=== PATIENT | female | born 1985 | race Caucasian/White ===

== ENCOUNTER 2019-01-17 19:27 | Emergency (ER) | payer BC, MEDICAID ==
[~2019-01-17] VITALS: Ht 154.9 cm; Wt 77.7 kg
[~2019-01-17 19:27] MED LIST: CEFD300C37 PO; CLIN300C8 PO; IBUP-1222 PO; OXYC-302 PO; OXYC-307 PO; PHEN-418 PO; PNV1TAB.5 PO; PNV1TABL11 PO; PREN1TAB14 PO; PROG100C16 PO; keflex
[2019-01-17 19:52] LABS: BASOPHILS # (AUTO) 0.02 x10^3/uL (0-0.1); BASOPHILS % (AUTO) 0 % (0-1); EOSINOPHILS # (AUTO) 0.04 x10^3/uL (0-0.4); EOSINOPHILS % (AUTO) 1 % (1-7); LYMPHOCYTES # (AUTO) 0.66 x10^3/uL (1-3.4); LYMPHOCYTES % (AUTO) 13 % (22-44); MD NO; MEAN CORPUSCULAR HGB CONC 34.4 g/dL (32.4-35.8); MEAN CORPUSCULAR VOLUME 84.4 fL (80-100); MEAN PLATELET VOLUME 8.5 fL (7.4-10.4); MONOCYTES # (AUTO) 0.33 x10^3/uL (0.2-0.8); MONOCYTES % (AUTO) 7 % (2-9); NEUTROPHILS % (AUTO) 79 % (42-75); PLATELET COUNT 285 x10^3/uL (130-400); RED BLOOD COUNT 4.82 x10^6/uL (3.82-5.3); RED CELL DISTRIBUTION WIDTH 13.2 % (9.6-15.2)
[2019-01-17 20:02] LABS: ANION GAP 4 mmol/L (5-15); CALCIUM 8.4 mg/dL (8.5-10.1); CHLORIDE 108 mmol/L (98-107); CREATININE 0.68 mg/dL (0.55-1.02)
--- NOTE | 2019-01-17 20:36 | NUR ---
FIRST CONTACT WITH PT. PT C/O CHEST DISCOMFORT WITH NAUSEA/SOB X 3 DAYS. PT DENIES ANY CARDIAC HISTORY. PT'S AOX4. RESPS EVEN AND UNLABORED. SINUS TACHY ON SEMI DRIVER RATE 100'S AT THIS TIME. ALL MONITORS IN PLACE. CALL LIGHT WITHIN REACH. AWAITING EDMD ASSESSMENT AT THIS TIME.
--- NOTE | 2019-01-17 21:05 | NUR ---
PT AMB TO BR AND BACK TO ROOM WITH STEADY GAIT.
[2019-01-17 21:14] LABS: TROPONIN I < 0.015 ng/mL (0.000-0.045)
--- NOTE | 2019-01-17 21:37 | NUR ---
PT RESTING IN [facility]. ALL MONITORS IN PLACE. CALL LIGHT WITHIN REACH. AWAITING DC AT THIS TIME.
--- NOTE | 2019-01-17 22:30 | NUR ---
PT TO CT NOW.
[2019-01-17] MEDS ORDERED: OMNIPAQUE 350 MG/ML, 100ML BOTTLE ONE (22:39)
--- NOTE | 2019-01-17 22:41 | NUR ---
PT BACK TO ROOM FROM CT AT THIS TIME.
[2019-01-17 23:18] VITALS: BP 113/86
--- NOTE | 2019-01-17 23:19 | NUR ---
PT GIVEN DC INSTRUCTIONS. PT AMB TO DC WITH STEADY GAIT. PT'S AOX4. RESPS EVEN AND UNLABORED. NO ACUTE DISTRESS AT DC.
== END 2019-01-17 23:20 | disposition home or self-care (01) ==
LOC: ED 21:06
DX: R07.2 Precordial pain (principal); R00.2 Palpitations; E66.9 Obesity, unspecified
CPT/HCPCS: 36415; 71046; 71275; 80048; 84439; 84443; 84484; 84703; 85025; 85379; 93005; 99284; Q9967

== ENCOUNTER → 2020-08-13 | Outpatient (CLI) | payer BC | END | disposition home or self-care (01) | LOC: STAR 15:01 | PROVIDERS: ATTEND Obstetrics & Gynecology | DX: Z20.828 Contact with and (suspected) exposure to other viral communicable diseases (principal) | CPT/HCPCS: 36415; 87635 ==

== ENCOUNTER 2020-08-14 15:44 | Inpatient (IN) | payer BC ==
[~2020-08-14] VITALS: Ht 154.9 cm; Wt 68.2 kg
[2020-08-14] MEDS ORDERED: FENTANYL PF 100 MCG/2ML ONE (16:26)
[2020-08-14] MEDS ORDERED: OXYTOCIN 30U/ 0.9% NaCL 500ML 500 ML IV ONE (16:30)
[2020-08-14] MEDS ORDERED: CALCIUM CARBONATE 500 MG TAB.CHEW PO PRN (16:30)
[2020-08-14] MEDS ORDERED: FENTANYL PF 100 MCG/2ML IVPush PRN (16:30)
[2020-08-14] MEDS ORDERED: TERBUTALINE 1 MG/ML, 1ML SQ PRN (16:30)
[2020-08-14] MEDS ORDERED: TERBUTALINE 1 MG/ML, 1ML IVPush PRN (16:30)
[2020-08-14] MEDS ORDERED: FENTANYL PF 100 MCG/2ML IV PRN (16:30)
[2020-08-14] MEDS ORDERED: ONDANSETRON 2MG/ML, 2ML IVPush PRN (16:30)
[2020-08-14] MEDS ORDERED: D5%-LACTATED RINGERS 1,000 ML IV SCH (16:30)
[2020-08-14] MEDS: LACTATED RINGERS 1,000 ML IV SCH ×2 (16:32→17:30)
[2020-08-14 16:35] LABS: BASOPHILS % (AUTO) 0 % (0-1); EOSINOPHILS % (AUTO) 0 % (1-7); LYMPHOCYTES % (AUTO) 9 % (22-44); MEAN CORPUSCULAR HEMOGLOBIN 27.8 pg (27.0-34.8); MEAN CORPUSCULAR HGB CONC 32.9 g/dL (32.4-35.8); MEAN PLATELET VOLUME 8.5 fL (7.4-10.4); MONOCYTES % (AUTO) 5 % (2-9); NEUTROPHILS % (AUTO) 85 % (42-75); PLATELET COUNT 261 x10^3/uL (130-400); RED BLOOD COUNT 4.12 x10^6/uL (3.82-5.3); RED CELL DISTRIBUTION WIDTH 14.3 % (9.6-15.2)
[2020-08-14 16:37] VITALS: BP 112/61
[2020-08-14 17:12] LABS: MD SCAN
[2020-08-14] MEDS ORDERED: BUPIVACAINE 0.25% ONE (17:29)
[2020-08-14] MEDS ORDERED: FENTANYL/BUPIV./NS/PF 250 ML EPIDCONT ONE (17:29)
[2020-08-14] MEDS ORDERED: NEWBORN KIT ONE (17:35)
[2020-08-14] MEDS: OXYTOCIN 30U/ 0.9% NaCL 500ML 500 ML IV SCH (17:37)
[2020-08-14] MEDS ORDERED: FLU VACC QS2020-21(6MOS UP)/PF 60MCG/0.5 ML SYR IM ONE (18:00)
[2020-08-14] MEDS ORDERED: OXYTOCIN 30U/ 0.9% NaCL 500ML 500 ML ONE ×2 (18:32→19:32)
[2020-08-14] MEDS ORDERED: ONDANSETRON 2MG/ML, 2ML IV PRN (19:00)
[2020-08-14] MEDS ORDERED: ACETAMINOPHEN 325 MG TABLET PO PRN (19:00)
[2020-08-14] MEDS ORDERED: OXYcodone/APAP 5/325MG TABLET PO PRN (19:00)
[2020-08-14] MEDS ORDERED: MISOPROSTOL 200 MCG TABLET PR PRN (19:00)
[2020-08-14] MEDS ORDERED: SIMETHICONE 80 MG CHEW TAB PO PRN (19:00)
[2020-08-14 21:00] VITALS: BP 121/72
[2020-08-14] MEDS: IBUPROFEN 600 MG TABLET PO PRN (22:10)
[2020-08-14] MEDS: DOCUSATE 100 MG CAPSULE PO PRN (22:10)
[2020-08-14] MEDS: OXYcodone IR 5MG TABLET PO PRN (22:11)
[2020-08-15] VITALS: BP 127/83
[2020-08-15] MEDS: OXYcodone IR 5MG TABLET PO PRN ×4 (02:16→15:21)
[2020-08-15 03:04] LABS: BASOPHILS % (AUTO) 0 % (0-1); EOSINOPHILS % (AUTO) 1 % (1-7); LYMPHOCYTES % (AUTO) 11 % (22-44); MEAN CORPUSCULAR HGB CONC 33.6 g/dL (32.4-35.8); MEAN PLATELET VOLUME 9.1 fL (7.4-10.4); MONOCYTES % (AUTO) 7 % (2-9); NEUTROPHILS % (AUTO) 82 % (42-75); PLATELET COUNT 231 x10^3/uL (130-400); RED CELL DISTRIBUTION WIDTH 14.2 % (9.6-15.2)
[2020-08-15 03:53] LABS: MD SCAN
[2020-08-15 04:00] VITALS: BP 120/71
[2020-08-15] MEDS: OXYTOCIN 30U/ 0.9% NaCL 500ML 500 ML IV SCH ×2 (05:00→15:00)
[2020-08-15] MEDS: IBUPROFEN 600 MG TABLET PO PRN ×2 (06:25→12:35)
[2020-08-15] MEDS ORDERED: IBUP-1222 PO (07:19)
[2020-08-15 08:27] VITALS: BP 122/83
[2020-08-15] MEDS ORDERED: FLU VACC QS2020-21(6MOS UP)/PF 60MCG/0.5 ML SYR IM-VACC ONE (09:00)
[2020-08-15] MEDS ORDERED: PRENATAL VIT/IRON/FA 1 EACH TABLET PO SCH (09:00)
[2020-08-15] MEDS: DOCUSATE 100 MG CAPSULE PO PRN (10:59)
[2020-08-15 12:00] VITALS: BP 121/86
[2020-08-15 16:15] VITALS: BP 128/85
== END 2020-08-15 18:32 | disposition home or self-care (01) | DRG 807 ==
LOC: LDOP 15:44 → LDIP 16:01 → 2NW 20:45
PROVIDERS: ADMIT Obstetrics & Gynecology; ATTEND Obstetrics & Gynecology
PROC: 10E0XZZ Delivery of Products of Conception, External Approach (ICD-10-PCS; principal; 2020-08-14)
DX: O69.1XX0 Labor and delivery complicated by cord around neck, with compression, not applicable or unspecified (principal); Z37.0 Single live birth; Z3A.00 Weeks of gestation of pregnancy not specified
CPT/HCPCS: 36415; 85025; 86592; 86850; 86900; 87635; 90686; G0378; J3010; J2590; J7120

== ENCOUNTER 2020-09-20 12:17 | Emergency (ER) | payer BC ==
[~2020-09-20] VITALS: Ht 154.9 cm; Wt 62.5 kg
--- NOTE | 2020-09-20 12:51 | NUR ---
pt. came in c/o painful urination, right flank pain x2 days. Pt. states hx of UTI, kidney stones. States feels similar. Denies fever, black tarry stool. Pt. connected to monitoring equipt. Call light within reach. Blankets provided. at bedside.
[2020-09-20] MEDS ORDERED: SODIUM CHLORIDE FLUSH 10ML SYR IVF ONE (13:00)
[2020-09-20] MEDS ORDERED: KETOROLAC 30 MG/1 ML IVPush ONE (13:00)
[2020-09-20] MEDS ORDERED: KETOROLAC 30 MG/1 ML ONE (13:03)
[2020-09-20 13:14] LABS: MICROSCOPIC INDICATED
[2020-09-20 13:26] LABS: BASOPHILS % (AUTO) 0 % (0-1); EOSINOPHILS % (AUTO) 1 % (1-7); LYMPHOCYTES % (AUTO) 13 % (22-44); MEAN CORPUSCULAR HEMOGLOBIN 27.8 pg (27.0-34.8); MEAN CORPUSCULAR HGB CONC 33.1 g/dL (32.4-35.8); MEAN PLATELET VOLUME 8.3 fL (7.4-10.4); MONOCYTES % (AUTO) 6 % (2-9); NEUTROPHILS % (AUTO) 80 % (42-75); PLATELET COUNT 265 x10^3/uL (130-400); RED BLOOD COUNT 4.71 x10^6/uL (3.82-5.3)
[2020-09-20 13:37] LABS: ALANINE AMINOTRANSFERASE 14 U/L (12-78); ALBUMIN 3.3 g/dL (3.4-5.0); ANION GAP 3 mmol/L (5-15); CALCIUM 8.5 mg/dL (8.5-10.1); CHLORIDE 109 mmol/L (98-107); CREATININE 0.78 mg/dL (0.55-1.02)
[2020-09-20 13:41] LABS: ALKALINE PHOSPHATASE 99 U/L (45-117); BILIRUBIN,TOTAL 0.4 mg/dL (0.2-1.0); TOTAL PROTEIN 6.8 g/dL (6.4-8.2)
[2020-09-20 13:44] LABS: MD SCAN
[2020-09-20] MEDS ORDERED: CEFTRIAXONE PMX 1GM/50ML 50 ML IV ONE (14:00)
[2020-09-20 15:06] VITALS: BP 118/74
== END 2020-09-20 15:09 | disposition home or self-care (01) ==
LOC: ED 14:16
DX: N10 Acute pyelonephritis (principal)
CPT/HCPCS: 36415; 80053; 81001; 83690; 84703; 85025; 87077; 87086; 87147; 96365; 96366; 96375; 99284; J0696; J1885; 87186